=== PATIENT | female | born 1940 | race Caucasian/White ===

== ENCOUNTER 2019-03-24 12:38 | Emergency (ER) | payer OTHER, MEDICAID ==
[~2019-03-24] VITALS: Ht 152.4 cm; Wt 71.2 kg
[2019-03-24 12:51] VITALS: BP 158/84
[2019-03-24] MEDS ORDERED: NACL 0.9% 1,000 ML IV SCH (13:01)
--- NOTE | 2019-03-24 13:23 | NUR ---
PT GOING TOP CT VIA WHEELCHAIR
--- NOTE | 2019-03-24 13:30 | NUR ---
PT RETURNED FROM CT
--- NOTE | 2019-03-24 13:39 | NUR ---
C/O BILAT LOWER QUADRANT ABD PAIN 6/10 WITH DIARRHEA X 5 DAYS. REPORTS BM HAVE BEEN "LOOSE". WAS TAKING IMMODIUM LAST WEEK WITH RELIEF, BUT NOW DIARRHEA HAS RETURNED. ABDOMEN SOFT AND ROUND, TENDER TO TOUCH IN LOWER QUADRANTS. BOWEL SOUNDS ACTIVE IN ALL 4 QUADRANTS. PT ALERT AND AWAKE, AMBULATORY WITH STEADY GAIT. PT IS ALSO RQ A REFILL OF AMLODIPINE 5MG HX: DM, HTN, HIGH CHOLESTEROL, ARTHRITIS, CKD ST. 4 HX: SEE MED LIST
--- NOTE | 2019-03-24 13:41 | NUR ---
PT UNABLE TO GIVE URINE AT THIS TIME
[2019-03-24 14:04] LABS: BASOPHILS # (AUTO) 0.1 K/uL (0.00-0.22); BASOPHILS % (AUTO) 0.9 % (0.0-2.0); EOSINOPHILS # (AUTO) 0.2 K/uL (0-0.4); EOSINOPHILS % (AUTO) 2.2 % (0.0-4.0); HEMOGLOBIN 10.5 g/dL (12.0-16.0); LYMPHOCYTES # (AUTO) 1.3 K/uL (2.5-16.5); LYMPHOCYTES % (AUTO) 17.5 % (20.5-51.1); MEAN CORPUSCULAR HEMOGLOBIN 29 pg (27-31); MEAN CORPUSCULAR HGB CONC 32 g/dL (33-37); MEAN CORPUSCULAR VOLUME 90.6 fL (80-94); MONOCYTES # (AUTO) 0.5 K/uL (0.8-1.0); MONOCYTES % (AUTO) 7.2 % (1.7-9.3); NEUTROPHILS # (AUTO) 5.4 K/uL (1.8-7.7); NEUTROPHILS % (AUTO) 72.2 % (42.2-75.2); PLATELET COUNT (AUTO) 218 K/uL (140-450); RED BLOOD CELL COUNT(AUTO) 3.64 MIL/uL (4.20-5.40); RED CELL DISTRIBUTION WIDTH 13.8 % (11.6-13.7); WHITE BLOOD COUNT (AUTO) 7.5 K/uL (4.8-10.8)
[2019-03-24 14:12] LABS: ANION GAP 14.5 (8-16); CARBON DIOXIDE 25.6 mmol/L (21-32); CHLORIDE 107 mmol/L (98-107); CREATININE 1.4 mg/dL (0.6-1.3); GLUCOSE 229 mg/dL (74-106); POTASSIUM 4.1 mmol/L (3.5-5.1); SODIUM SERUM 143 mmol/L (136-145); UREA NITROGEN, BLOOD 28 mg/dL (7-18)
--- NOTE | 2019-03-24 14:16 | NUR ---
VS STABLE. NADR. PAIN 08/31. POSITONED PT FOR COMFORT. FAMILY BEDSIDE
--- NOTE | 2019-03-24 14:17 | NUR ---
PT STILL UNABLE TO GIVE URINE SAMPLE
[2019-03-24 14:18] LABS: ALBUMIN 3.4 g/dL (3.4-5.0); AMYLASE 55 U/L (25-115); ASPARTATE AMINOTRANSFERASE 19 U/L (15-37); LIPASE 641 U/L (73-393); TOTAL BILIRUBIN 0.3 mg/dL (0.0-1.0)
--- NOTE | 2019-03-24 15:11 | NUR ---
PT AMBULATING TO RESTROOM FOR UA AT THIS TIME
[2019-03-24] MEDS ORDERED: metroNIDAZOLE 250 MG TAB PO ONE (15:50)
[2019-03-24] MEDS ORDERED: NACL 0.9% 1,000 ML IV ONE (15:50)
[2019-03-24 15:52] LABS: APPEARANCE,URINE CLEAR (CLEAR); BILIRUBIN,URINE NEGATIVE (NEGATIVE); BLOOD, URINE NEGATIVE (NEGATIVE); COLOR,URINE YELLOW (YELLOW); LEUKOCYTE ESTERASE ,URINE NEGATIVE (NEGATIVE); NITRITE, URINE NEGATIVE (NEGATIVE); UGLUCOSE TRACE (NEGATIVE)
--- NOTE | 2019-03-24 16:02 | NUR ---
FLAGYL AND NACL BOLUS ADMINISTERED
[2019-03-24 17:10] VITALS: BP 168/70
--- NOTE | 2019-03-24 17:10 | NUR ---
DCPatient discharged with v/s stable. Written and verbal after care instructions given and explained. Patient alert, oriented and verbalized understanding of instructions. Ambulatory with steady gait. All questions addressed prior to discharge. ID band removed. Patient advised to follow up with PMD. Rx of FLAGYL, NORCO, AMLODIPINE given. Patient educated on indication of medication including possible reaction and side effects. Opportunity to ask questions provided and answered.
--- NOTE | 2019-03-24 17:10 | NUR ---
BP 168/70, HR 68, PT DENIES CP/SOB/N/V/DIZZINESS, DENIES ANY PAIN. DR POTTS AT BEDSIDE TO SPEAK WITH PT. PER DR POTTS, OK FOR DISCHARGE.
== END 2019-03-24 17:10 | disposition home or self-care (01) ==
LOC: MED 12:38
DX: K52.9 Noninfective gastroenteritis and colitis, unspecified (principal); R19.7 Diarrhea, unspecified
CPT/HCPCS: 36415; 80053; 81003; 82150; 83605; 83690; 85025; 87040; 96360; 96361; 99284

== ENCOUNTER 2019-03-27 12:07 | Emergency (ER) | payer OTHER, MEDICAID ==
[~2019-03-27] VITALS: Ht 157.5 cm; Wt 67.1 kg
[2019-03-27 12:22] VITALS: BP 152/79
--- NOTE | 2019-03-27 12:26 | NUR ---
Patient ambulated to bed 2. RN evaluating patient at bedside.
--- NOTE | 2019-03-27 12:44 | NUR ---
Dr. Billy is evaluating the patient at bedside.
[2019-03-27 13:13] VITALS: BP 152/79
--- NOTE | 2019-03-27 13:13 | NUR ---
Patient discharged with v/s stable . pt left without paperworks. Patient verbalized understanding. Ambulatory with steady gait. All questions addressed prior to discharge. Advised to follow up with PMD.
== END 2019-03-27 13:13 | disposition home or self-care (01) ==
LOC: MED 12:07
DX: K52.9 Noninfective gastroenteritis and colitis, unspecified (principal); E11.9 Type 2 diabetes mellitus without complications; I10 Essential (primary) hypertension
CPT/HCPCS: 99281

== ENCOUNTER 2019-03-27 14:55 | Emergency (ER) | payer OTHER, MEDICAID ==
[~2019-03-27] VITALS: Ht 157.5 cm; Wt 67.1 kg
[2019-03-27 14:55] VITALS: BP 132/62
--- NOTE | 2019-03-27 14:55 | NUR ---
Patient transferred to bed 5 via wheelchair by tech. RN evaluating patient at bedside.
[2019-03-27] MEDS ORDERED: DEXTROSE 50% 50 ML SYR IVP ONE ×2 (14:56→15:25)
--- NOTE | 2019-03-27 14:56 | NUR ---
Dr. Billy is evaluating the patient at bedside.
--- NOTE | 2019-03-27 14:57 | NUR ---
ACCUCHECK 20. EMERGENT D50 ADMINISTERED VIA L HAND IV.
--- NOTE | 2019-03-27 15:03 | NUR ---
PT WITH IMPROVED NEURO STATUS, PT AWAKE AND RESPONSIVE, AOX4, GCS 15. DR GUZMAN AWARE
--- NOTE | 2019-03-27 15:15 | NUR ---
PT GIVEN MEAL TRAY, PT EATING
--- NOTE | 2019-03-27 15:28 | NUR ---
BIB DAUGHTER PT ALOC/ NON VERBAL 1 HOUR PRE ARRIVAL. BG 20, D50 GIVEN IVP. PATIENTS NEURO IMPROVED SIGNIFICANTLY. AAOX3. LUNCH TRAY GIVEN TO PT, AT BESIDE EATING. PT O2 SAT 92 RA, APPLIED 2L O2, PT O2 SAT INCREASED TO 99%. ALL NEEDS MET AT THIS TIME.
[2019-03-27 15:37] LABS: BASOPHILS # (AUTO) 0.1 K/uL (0.00-0.22); BASOPHILS % (AUTO) 0.6 % (0.0-2.0); EOSINOPHILS # (AUTO) 0.1 K/uL (0-0.4); EOSINOPHILS % (AUTO) 1.1 % (0.0-4.0); HEMATOCRIT 33.5 % (36-48); HEMOGLOBIN 10.5 g/dL (12.0-16.0); LYMPHOCYTES % (AUTO) 15.9 % (20.5-51.1); MEAN CORPUSCULAR HEMOGLOBIN 29 pg (27-31); MEAN CORPUSCULAR HGB CONC 31 g/dL (33-37); MEAN CORPUSCULAR VOLUME 90.8 fL (80-94); MONOCYTES # (AUTO) 0.6 K/uL (0.8-1.0); MONOCYTES % (AUTO) 4.8 % (1.7-9.3); NEUTROPHILS # (AUTO) 9.7 K/uL (1.8-7.7); NEUTROPHILS % (AUTO) 77.6 % (42.2-75.2); PLATELET COUNT (AUTO) 238 K/uL (140-450); RED BLOOD CELL COUNT(AUTO) 3.69 MIL/uL (4.20-5.40); RED CELL DISTRIBUTION WIDTH 14.2 % (11.6-13.7); WHITE BLOOD COUNT (AUTO) 12.4 K/uL (4.8-10.8)
--- NOTE | 2019-03-27 16:06 | NUR ---
PATIENT RESTING IN BED. ATE 40% OF MEAL TRAY. ALL NEEDS MET AT THIS TIME.
[2019-03-27 17:03] LABS: ANION GAP 15.7 (8-16); CARBON DIOXIDE 25.7 mmol/L (21-32); CHLORIDE 108 mmol/L (98-107); CREATININE 1.5 mg/dL (0.6-1.3); GLUCOSE 192 mg/dL (74-106); POTASSIUM 3.4 mmol/L (3.5-5.1); SODIUM SERUM 146 mmol/L (136-145); UREA NITROGEN, BLOOD 21 mg/dL (7-18)
[2019-03-27 17:11] LABS: ALBUMIN 3.7 g/dL (3.4-5.0); ASPARTATE AMINOTRANSFERASE 23 U/L (15-37); TOTAL BILIRUBIN 0.2 mg/dL (0.0-1.0)
--- NOTE | 2019-03-27 17:22 | NUR ---
PT LAYING IN BED, FAMILY AT BEDSIDE. ACCUCHECK 121. VSS. DENIES ANY PAIN. ALL NEEDS MET.
[2019-03-27 17:50] VITALS: BP 139/72
--- NOTE | 2019-03-27 17:50 | NUR ---
Patient discharged with v/s stable. Written and verbal after care instructions given and explained. Patient verbalized understanding. Ambulatory with steady gait. All questions addressed prior to discharge. Advised to follow up with PMD.
== END 2019-03-27 17:50 | disposition home or self-care (01) ==
LOC: MED 14:55
DX: E11.649 Type 2 diabetes mellitus with hypoglycemia without coma (principal); J45.909 Unspecified asthma, uncomplicated; I10 Essential (primary) hypertension
CPT/HCPCS: 36415; 80053; 85025; 96374; 99283